=== PATIENT | female | born 1980 | race Caucasian/White ===

== ENCOUNTER 2019-05-18 23:40 | Inpatient (IN) | payer OTHER, SELFPAY ==
[2019-05-18 23:42] VITALS: BP 123/66; PULSE 100; RESP 18; TEMP 36.4; O2SAT 98; BMI 30.9
[2019-05-19] VITALS (7 sets, daily range): BP systolic 93–120; BP diastolic 56–68; PULSE 68–92; RESP 16–20; TEMP 36.7–37.4; O2SAT 96–100; BMI 30.5
[2019-05-19 01:15] LABS: Absolute Lymphocyte Count 2.16 X10^3/uL (0.83-4.51); Absolute Neutrophil Count 3.7 X10^3/uL (2.0-7.7); Basophil# 0.03 X10^3/uL; Basophil% 0.5 % (0-1); Eosinophil# 0.04 X10^3/uL; Eosinophils% 0.6 % (0-5); Hemoglobin 14.7 g/dL (12.0-15.0); Lymphocyte # 2.16 X10^3/ul (4.0); Lymphocyte % 33.8 % (19-41); Mean Corp Hgb Conc 34.2 g/dL (32-36); Mean Corpuscular Hgb 34.3 pg (27.0-32.0); Mean Corpuscular Volume 100.2 fL (81-99); Mean Platelet Vol. 8.6 fl (6.2-12.0); Monocyte# 0.46 X10^3/uL; Monocyte% 7.2 % (0-10); NRBC Flagged by Analyzer 0 % (0-5); Neutrophil # 3.69 X10^3/uL (2.7-7.7); Neutrophil % 57.6 % (47-70); Platelet Count 204 K/mm3 (150-450); RBC Distribution Width CV 13.8 % (11.6-14.6); Red Blood Count 4.29 M/mm3 (4.2-5.4); White Blood Count 6.4 K/mm3 (4.4-11.0)
[2019-05-19 01:31] LABS: AST(SGOT) 26 U/L (15-37); Alanine Aminotransfer ALT/SGPT 20 U/L (13-56); Albumin, Serum 3.9 g/dL (3.2-5.0); Alkaline Phosphatase 104 U/L (45-117); Anion Gap 6 (5-15); BUN 13 mg/dL (7-18); BUN/Creat Ratio 16.6 RATIO (10-20); Bilirubin, Direct 0.15 mg/dL (0.00-0.30); Calcium,Total 8.3 mg/dL (8.5-10.1); Chloride 111 mmol/L (98-107); Creatinine, Serum 0.78 mg/dL (0.55-1.02); EST Glomerular Filtration Rate 88 mL/min (>60); Est Glom Filt Rate - Afr Amer 107 mL/min (>60); Estimated Creatinine Clearance 85.27 ml/min; Globulin 3.5 g/dL (2.2-4.2); Glucose 96 mg/dL (74-106); Lipase 246 U/L (73-393); Potassium 3.9 mmol/L (3.5-5.1); Protein, Total 7.4 g/dL (6.4-8.2); Sodium Level 145 mmol/L (136-145)
--- NOTE | 2019-05-19 01:33 | ED.DCSUM_ITS ---
History of Present Illness Chief Complaint: Substance Abuse Detail of Chief Complaint: EtOH detox Informant: Patient Narrative: Patient presents with family and friends requesting help with alcohol detox. She states she normally drinks a pint of vodka a day. Her last drink was approximately 8 hours prior to my evaluation. She states overall she just feels cruddy and like a horrible person, but denies having nausea or shakes. She has gone through detox in the past and denies having any seizures from alcohol withdrawal. She was most recently at [facility] for detox a month ago. - Past Medical History (1) Alcoholism Status: Acute Past Medical History - Allergies and Home Meds Allergies/Adverse Reactions: Allergies No Known Allergies Allergy (Unverified 05/18/19 23:44) Primary Care Physician: August De La Torre DO [Primary Care Provider] - Prior records reviewed: Yes Smoking Status: Never smoker Alcohol: Heavy Review of Systems General: Denies: Chills, Fever Eyes: Denies: Visual changes - bilaterally ENT: Denies: Bilateral ear pain Cardiovascular: Denies: Chest pain Respiratory: Denies: Dyspnea Gastrointestinal: Denies: Abdominal pain, Nausea, Vomiting, Diarrhea Genitourinary: Denies: Dysuria Musculoskeletal: Denies: Back pain Skin: Denies: Rash Neurological: Denies: Headache Hematologic: Denies: Easy bruising Allergy: Denies: Uticaria Physical Exam Vital Signs/Narrative: Vital Signs Temp Pulse Resp BP Pulse Ox 05/18/19 23:42 97.6 F L 100 18 123/66 H 98 Inital Vital Signs reviewed: Yes General: Well nourished, Well developed Head: Normocephalic ENT: Moist mucous membranes Neck: Supple Cardiovascular: Regular rate, Regular rhythm Respiratory: No distress, CTA bilaterally Abdomen: Soft, Nontender Extremities: Nontender Skin: Normal color, No rash Neurological: Alert, Oriented x3 Psychological: Tearful, - - Anxious Diagnostic/Tx/Re-eval Laboratory Results 05/19/19 05/19/19 05/19/19 01:07 01:07 01:07 WBC 6.4 RBC 4.29 Hgb 14.7 Hct 43.0 MCV 100.2 H MCH 34.3 H MCHC 34.2 RDW Std Deviation 50.0 H RDW Coeff of Giana 13.8 Plt Count 204 MPV 8.6 Immature Gran % (Auto) 0.300 Neut % (Auto) 57.6 Lymph % (Auto) 33.8 Harding % (Auto) 7.2 Eos % (Auto) 0.6 Baso % (Auto) 0.5 Absolute Neuts (auto) 3.7 Absolute Lymphs (auto) 2.16 Nucleated RBC % 0 Sodium 145 Potassium 3.9 Chloride 111 H Carbon Dioxide 28.0 Anion Gap 6 BUN 13 Creatinine 0.78 Estim Creat Clear Calc 85.27 Est GFR (MDRD) Af Amer 107 Est GFR (MDRD) Non-Af 88 BUN/Creatinine Ratio 16.6 Glucose 96 Calcium 8.3 L Total Bilirubin 0.40 Direct Bilirubin 0.15 AST 26 ALT 20 Alkaline Phosphatase 104 Total Protein 7.4 Albumin 3.9 Globulin 3.5 Lipase 246 Ethyl Alcohol 334.0 H* - Medical Decision Making Test results are discussed with patient at bedside. She was initially not sure that she wanted to stay for the medical detox program. After talking over her test results with her, she has agreed that she wants help and wants to stay in the hospital. I will speak with the hospitalist. ED Disposition - Plan for ED Patient: Disposition: Acute Care Hospital [facility] Diagnosis: ETOH abuse Referrals: August De La Torre DO [Primary Care Provider] -
--- NOTE | 2019-05-19 02:14 | HP.PCM_ITS ---
Problem List (1) Alcohol dependence Status: Acute (2) Alcohol withdrawal Status: Acute History of Present Illness Date of Admission: 05/19/19 Chief Complaint: To detox from alcohol The patient is a 39 year old F with a significant history of alcohol dependence who is here for detoxification and with some mild withdrawal symptoms of shakiness and mild nausea. She drinks about 1 pint of vodka a day. The last t theodore she drank vodka was around 5 PM on 05/18/2019. At the Emergency department her ethanol level was at 334. About thirty days ago she went for inpatient alcohol withdrawal program at [place], [place]; and then followed it up with an outpatient alcohol withdrawal program at [place]. Past Medical History Past Medical History (Chronic Problems): Chronic Problems (Last Reviewed 05/19/19 @ 03:49 by Kalpesh Tijerina MD) Premature menopause on hormone replacement therapy (Chronic) Medical History: Medical History (Last Reviewed 05/19/19 @ 03:49 by Kalpesh Tijerina MD) Endometriosis N80.9 H/O: hysterectomy Z98.890, Z90.710 2007 [facility] BSO-endometriosis Allergies No Known Allergies Allergy (Unverified 05/18/19 23:44) Home Medications: Ambulatory Orders Medication Instructions Recorded traZODone [Desyrel] 100 mg PO QHS PRN 05/19/19 Surgical History: Surgical History (Last Reviewed 05/19/19 @ 03:54 by Kalpesh Tijerina MD) History of appendectomy Z98.890, Z90.49 History of cholecystectomy Z98.890, Z90.49 Surgical History: hysterectomy Lives: Alone Smoking Status: Never smoker Alcohol: Heavy - *Family History Maternal History Items: - - Depression Paternal History Items: - - Her father was addicted to alcohol and drugs; and her father had depression. Review of Systems Constitutional: Denies: Chills, Fever, Weight Change HEENT: Denies: Head Aches, Sinus Congestion, Sinus Drainage Cardiovascular: Denies: Chest Pain, Palpitations Respiratory: Denies: Cough, Shortness of breath at rest, Sputum production Gastrointestinal: Reports: Nausea. Denies: Abdominal Pain, Vomiting Genitourinary: Denies: Dysuria Musculoskeletal: Denies: Joint Pain, Joint Tenderness Skin: Denies: Rash, Wounds Neurological: Reports: Tremor. Denies: Focal weakness, Numbness, Tingling Psychiatric: Reports: Anxiety, Depression. Denies: Homicidal Ideations, Suicidal Ideations Hematologic/ Lymphatic: Denies: Easy Bruising, Easy Bleeding VTE Information - Inpt Only VTE Present on Admission: No VTE Mechan Device Prophylaxis: None VTE Pharm Prophylaxis ordered?: No Reason prophylaxis not ordered:: Treatment Not Indicated - Low risk; encouraged to ambulate. Patient Problems: Active and Suspected Problems (Last Reviewed 05/19/19 @ 03:49 by Kalpesh Tijerina MD) Alcoholism (Acute) ETOH abuse (Acute) Alcohol dependence (Acute) Alcohol withdrawal (Acute) - Physical Exam Vitals/I&O's: Vital Signs Temp Pulse Resp BP Pulse Ox 97.6 F L 100 18 123/66 H 98 05/18/19 23:42 05/18/19 23:42 05/18/19 23:42 05/18/19 23:42 05/18/19 23:42 Oxygen Delivery Method Room Air Weight: 81.647 kg Body Mass Index (BMI) 30.9 General: Alert, Oriented x3, Cooperative HEENT: Atraumatic, PERRLA, EOMI, Normocephalic Neck: Supple, No JVD, Negative Carotid Bruits Lungs: Clear to auscultation, Normal air movement Cardiovascular: Regular rate, No murmurs Abdomen: Bowel Sounds Present, Soft, Non Tender Extremities: No edema, Capillary Refill Less than 3 Seconds Skin: No rashes, No breakdown Musculoskeletal: No Tenderness to Palpation of Joints or Extremities Neurological: Cranial nerves II-XII grossly intact Psych/Mental Status: Normal Affect, Appropriate Laboratory Results 05/19/19 01:07: WBC 6.4, RBC 4.29, Hgb 14.7, Hct 43.0, MCV 100.2 H, MCH 34.3 H, MCHC 34.2, RDW Std Deviation 50.0 H, RDW Coeff of Giana 13.8, Plt Count 204, MPV 8.6, Immature Gran % (Auto) 0.300, Neut % (Auto) 57.6, Lymph % (Auto) 33.8, Dorado % (Auto) 7.2, Eos % (Auto) 0.6, Baso % (Auto) 0.5, Absolute Neuts (auto) 3.7, Absolute Lymphs (auto) 2.16, Nucleated RBC % 0 05/19/19 01:07: Sodium 145, Potassium 3.9, Chloride 111 H, Carbon Dioxide 28.0, Anion Gap 6, BUN 13, Creatinine 0.78, Estim Creat Clear Calc 85.27, Est GFR (MDRD) Af Amer 107, Est GFR (MDRD) Non-Af 88, BUN/Creatinine Ratio 16.6, Glucose 96, Calcium 8.3 L, Total Bilirubin 0.40, Direct Bilirubin 0.15, AST 26, ALT 20, Alkaline Phosphatase 104, Total Protein 7.4, Albumin 3.9, Globulin 3.5, Lipase 246 05/19/19 01:07: Ethyl Alcohol 334.0 H* Assessment/Plan All Active Problems (Last Reviewed 05/19/19 @ 03:49 by Kalpesh Tijerina MD) Alcoholism (Acute) ETOH abuse (Acute) Alcohol dependence (Acute) Alcohol withdrawal (Acute) The patient is a 39 year old F with a significant history of alcohol dependence who is here for detoxification and with some mild withdrawal symptoms of shakiness and mild nausea Alcohol Dependence with withdrawal We will start patient on Librium taper and other supportive medications. Multivitamin; thiamine and folic acid ordered. PRN Ativan for seizures. Zofran IV for antiemetics DVT prophylaxis Low risk. Encouraged to ambulate. Code Visit Inpatient E&M: 25696 Init Hosp L3
[2019-05-19 02:29] LABS: Vista UDS pH Range 6
[2019-05-19 02:40] LABS: Amphetamine Urine VISTA NEGATIVE (<1000 ng/mL); Barbiturate Urine VISTA NEGATIVE (< 200 ng/mL); Benzodiazepine Urine VISTA NEGATIVE (< 200 ng/mL); Cocaine Urine VISTA NEGATIVE (< 300 ng/mL); Ecstacy Urine VISTA NEGATIVE (< 500 ng/mL); Methadone Urine VISTA NEGATIVE (< 300 ng/mL); PCP Urine VISTA NEGATIVE (< 25 ng/mL); THC Urine VISTA NEGATIVE (< 50 ng/mL)
[2019-05-19] MEDS: chlordiazePOXIDE 25 MG Capsule 50 MG PO ×4 (03:36→21:20)
[2019-05-19] MEDS: Folic Acid 1 MG Tablet PO (08:12)
[2019-05-19] MEDS: hydrOXYzine PAM 25 MG Capsule 50 MG PO ×2 (08:12→14:26)
[2019-05-19] MEDS: Ondansetron 4 MG/2 ML Vial IV (08:12)
[2019-05-19] MEDS: Multivitamins,Therapeutic Tablet 1 TABLET PO (08:13)
[2019-05-19] MEDS: Thiamine Hydrochloride 100 MG Tablet PO (08:13)
--- NOTE | 2019-05-19 09:15 | CASEMGMT ---
Social Work Note Pt is at [facility] for alcohol withdrawal. RUBY met with pt and introduced self and role at [facility]. Pt is alert and orientated x3. Pt states that she is currently in IOP at [facility] and plans on resuming IOP at discharge. Pt states that she was in [facility] as an inpatient about a month ago and then transitioned to their IOP program. Pt states that she thinks the program is working she just had a slip up. SW informed pt that slip ups are going to happen and it is part of the treatment for addiction. Pt denied wanting additional information/resources at this time and denied wanting this worker to send any clinicals to [facility]. Plan: Resume IOP at [facility] at discharge Tarsha Messina MSW, [employer]PERATOR
--- NOTE | 2019-05-19 10:09 | PCM.PN.HOSP ---
Patient Problems: Active and Suspected Problems (Last Reviewed 05/19/19 @ 03:49 by Kalpesh Tijerina MD) Alcoholism (Acute) ETOH abuse (Acute) Alcohol dependence (Acute) Alcohol withdrawal (Acute) Subjective: Patient seen and examined. She has no complaints. She was admitted for acute alcohol withdrawal. Complains of feeling embarrassed because she just went through intensive inpatient rehab at [facility]. However she states she fell off the wagon yesterday and drank about a pint of vodka. She had no active complaints and review of signs otherwise negative. Labs and vitals reviewed. Vitals/I&O's: Vital Signs Temp Pulse Resp BP Pulse Ox 98.7 F 83 18 104/56 L 96 05/19/19 08:08 05/19/19 08:08 05/19/19 08:08 05/19/19 08:08 05/19/19 08:08 Oxygen Delivery Method Room Air Weight: 177 lb 14.609 oz Body Mass Index (BMI) 30.5 General: Alert, Oriented x3, Cooperative, No apparent distress HEENT: Atraumatic, PERRLA, EOMI, Normocephalic Oral: Moist Mucosa Neck: Supple, No JVD, Negative Carotid Bruits Lungs: Clear to auscultation, Normal air movement, No rhonchi, No wheeze, No rales Cardiovascular: Regular rate, Regular Rhythm, Normal S1, Normal S2, No murmurs Abdomen: Bowel Sounds Present, Soft, Non Tender Extremities: No edema, Capillary Refill Less than 3 Seconds Skin: No rashes, No breakdown Musculoskeletal: No Tenderness to Palpation of Joints or Extremities Lymphatic: No Cervical, Supraclavicular, or Inguinal Adenopathy Neurological: Cranial nerves II-XII grossly intact Psych/Mental Status: Normal Affect, Appropriate, Alert and oriented to time, place, person, mood and affect Laboratory Results 05/19/19 01:07: WBC 6.4, RBC 4.29, Hgb 14.7, Hct 43.0, MCV 100.2 H, MCH 34.3 H, MCHC 34.2, RDW Std Deviation 50.0 H, RDW Coeff of Giana 13.8, Plt Count 204, MPV 8.6, Immature Gran % (Auto) 0.300, Neut % (Auto) 57.6, Lymph % (Auto) 33.8, Hinds % (Auto) 7.2, Eos % (Auto) 0.6, Baso % (Auto) 0.5, Absolute Neuts (auto) 3.7, Absolute Lymphs (auto) 2.16, Nucleated RBC % 0 05/19/19 01:07: Sodium 145, Potassium 3.9, Chloride 111 H, Carbon Dioxide 28.0, Anion Gap 6, BUN 13, Creatinine 0.78, Estim Creat Clear Calc 85.27, Est GFR (MDRD) Af Amer 107, Est GFR (MDRD) Non-Af 88, BUN/Creatinine Ratio 16.6, Glucose 96, Calcium 8.3 L, Total Bilirubin 0.40, Direct Bilirubin 0.15, AST 26, ALT 20, Alkaline Phosphatase 104, Total Protein 7.4, Albumin 3.9, Globulin 3.5, Lipase 246 05/19/19 01:07: Ethyl Alcohol 334.0 H* 05/19/19 02:24: Urine Opiates Screen NEGATIVE, Urine Methadone Screen NEGATIVE, Ur Barbiturates Screen NEGATIVE, Ur Phencyclidine Scrn NEGATIVE, Ur Amphetamines Screen NEGATIVE, U Methamphetamin-MDMA NEGATIVE, U Benzodiazepines Scrn NEGATIVE, Urine Cocaine Screen NEGATIVE, U Cannabinoids Screen NEGATIVE, Ur Drug Screen Comment Current Medications Acetaminophen (Tylenol) 650 mg PO Q6H PRN PRN PRN Reason: Pain Score 1-10/Temp > 100.7 F Chlordiazepoxide (Librium) 50 mg PO Q6H CALDERON; Taper Stop: 05/22/19 05:09 Last Admin: 05/19/19 08:13 Dose: 50 mg Documented by: Dicyclomine HCl (Bentyl) 20 mg PO Q6H PRN PRN PRN Reason: abdominal discomfort Folic Acid (Folic Acid) 1 mg PO DAILYCM CALDERON Stop: 05/21/19 08:01 Last Admin: 05/19/19 08:12 Dose: 1 mg Documented by: Glucagon () 1 mg IM .X1 PRN PRN Reason: Hypoglycemia Hydroxyzine Pamoate (Vistaril Pamoate Capsule) 50 mg PO Q6H PRN PRN PRN Reason: Mild Anxiety (score 1/3) Last Admin: 05/19/19 08:12 Dose: 50 mg Documented by: Dextrose (Dextrose 10%-Water) 250 mls @ 999 mls/hr IV .Q16M PRN; Protocol PRN Reason: HYPOGLYCEMIA Lorazepam (Ativan) 2 mg IV X1 PRN PRN Reason: Seizure Methocarbamol (Methocarbamol) 750 mg PO Q6H PRN PRN PRN Reason: Muscle Aches [facility] Last Admin: 05/19/19 08:13 Dose: 1 tablet Documented by: Ondansetron HCl (Zofran) 4 mg IV Q8H PRN PRN PRN Reason: NAUSEA/VOMITING Last Admin: 05/19/19 08:12 Dose: 4 mg Documented by: Sodium Chloride () 10 - 40 ml IV UD PRN PRN Reason: SALINE FLUSH Thiamine HCl (Vitamin B1) [facility] Stop: 05/21/19 08:01 Last Admin: 05/19/19 08:13 Dose: 100 mg Documented by: STROKE Vital Signs/Narrative: Vital Signs Temp Pulse Resp BP Pulse Ox 05/19/19 08:08 98.7 F 83 18 104/56 L 96 05/19/19 08:00 98 Medical Necessity - Tobacco Use Smoking Status: Never smoker Assessment/Plan All Active Problems (Last Reviewed 05/19/19 @ 03:49 by Kalpesh Tijerina MD) Alcoholism (Acute) ETOH abuse (Acute) Alcohol dependence (Acute) Alcohol withdrawal (Acute) 1. Acute alcohol withdrawal CIWA score today is 13 this morning. On alcohol withdrawal taper with Librium. on Multivite, thiamine and folic acid. Plans on intensive outpatient rehab upon discharge. Monitor CIWA score. 2. Depression: On trazodone DVT prophylaxis: low risk. encourage ambulation Code Visit Inpatient E&M: 04748 Subs Hosp L2
[2019-05-19] MEDS: LORazepam 1 MG Tablet PO ×2 (12:34→17:36)
[2019-05-19] MEDS: Methocarbamol 750 MG Tablet PO (21:24)
[2019-05-20 05:04] VITALS: BP 103/55; PULSE 61; RESP 16; TEMP 36.4; O2SAT 98
[2019-05-20] MEDS: chlordiazePOXIDE 25 MG Capsule 50 MG PO ×2 (05:07→12:47)
--- NOTE | 2019-05-20 10:36 | PN_ITS ---
Patient Problems: Active and Suspected Problems (Last Reviewed 05/19/19 @ 03:49 by Kalpesh Tijerina MD) Alcoholism (Acute) ETOH abuse (Acute) Alcohol dependence (Acute) Alcohol withdrawal (Acute) Subjective: Patient seen and examined. She admits to having some anxiety overnight but that is now better. Review of symptoms otherwise negative. Labs and vitals reviewed. Vitals/I&O's: Vital Signs Temp Pulse Resp BP Pulse Ox 97.6 F L 61 16 103/55 L 98 05/20/19 05:04 05/20/19 05:04 05/20/19 05:04 05/20/19 05:04 05/20/19 05:04 Oxygen Delivery Method Room Air Weight: 177 lb 14.609 oz Body Mass Index (BMI) 30.5 Intake and Output for Last 24 Hours 05/18/19 05/19/19 05/20/19 23:59 23:59 23:59 Intake Total 900 / 1400 1000 / 1000 Balance 900 / 1400 1000 / 1000 General: Alert, Oriented x3, Cooperative, No apparent distress HEENT: Atraumatic, PERRLA, EOMI, Normocephalic Oral: Moist Mucosa Neck: Supple, No JVD, Negative Carotid Bruits Lungs: Clear to auscultation, Normal air movement, No rhonchi, No wheeze, No rales Cardiovascular: Regular rate, Regular Rhythm, Normal S1, Normal S2, No murmurs Abdomen: Bowel Sounds Present, Soft, Non Tender Extremities: No edema, Capillary Refill Less than 3 Seconds Skin: No rashes, No breakdown Musculoskeletal: No Tenderness to Palpation of Joints or Extremities Lymphatic: No Cervical, Supraclavicular, or Inguinal Adenopathy Neurological: Cranial nerves II-XII grossly intact Psych/Mental Status: Normal Affect, Appropriate, Alert and oriented to time, place, person, mood and affect Current Medications Acetaminophen (Tylenol) 650 mg PO Q6H PRN PRN PRN Reason: Pain Score 1-10/Temp > 100.7 F Chlordiazepoxide (Librium) 50 mg PO Q8H CALDERON; Taper Stop: 05/22/19 05:09 Last Admin: 05/20/19 05:07 Dose: 50 mg Documented by: Dicyclomine HCl (Bentyl) 20 mg PO Q6H PRN PRN PRN Reason: abdominal discomfort Folic Acid (Folic Acid) [facility] Stop: 05/21/19 08:01 Last Admin: 05/19/19 08:12 Dose: 1 mg Documented by: Glucagon () 1 mg IM .X1 PRN PRN Reason: Hypoglycemia Hydroxyzine Pamoate (Vistaril Pamoate Capsule) 50 mg PO Q6H PRN PRN PRN Reason: Mild Anxiety (score 1/3) Last Admin: 05/19/19 14:26 Dose: 50 mg Documented by: Dextrose (Dextrose 10%-Water) 250 mls @ 999 mls/hr IV .Q16M PRN; Protocol PRN Reason: HYPOGLYCEMIA Lorazepam (Ativan) 2 mg IV X1 PRN PRN Reason: Seizure Methocarbamol (Methocarbamol) 750 mg PO Q6H PRN PRN PRN Reason: Muscle Aches Last Admin: 05/19/19 21:24 Dose: 750 mg Documented by: Multivitamins (Multivitamin) [facility] Last Admin: 05/19/19 08:13 Dose: 1 tablet Documented by: Ondansetron HCl (Zofran) 4 mg IV Q8H PRN PRN PRN Reason: NAUSEA/VOMITING Last Admin: 05/19/19 08:12 Dose: 4 mg Documented by: Sodium Chloride () 10 - 40 ml IV UD PRN PRN Reason: SALINE FLUSH Thiamine HCl (Vitamin B1) 100 [facility] Stop: 05/21/19 08:01 Last Admin: 05/19/19 08:13 Dose: 100 mg Documented by: Medical Necessity - Tobacco Use Smoking Status: Never smoker Assessment/Plan All Active Problems (Last Reviewed 05/19/19 @ 03:49 by Kalpesh Tijerina MD) Alcoholism (Acute) ETOH abuse (Acute) Alcohol dependence (Acute) Alcohol withdrawal (Acute) 1. Acute alcohol withdrawal * CIWA score today is 4 this morning. * On alcohol withdrawal taper with Librium. * on Multivite, thiamine and folic acid. * Plans on intensive outpatient rehab upon discharge. * Monitor CIWA score. * 2. Depression: On trazodone DVT prophylaxis: low risk. encourage ambulation Disposition: patient wants to be discharged home tomorrow. Code Visit Inpatient E&M: 19604 Subs Hosp L2
[2019-05-20] MEDS: Thiamine Hydrochloride 100 MG Tablet PO (10:41)
[2019-05-20] MEDS: Folic Acid 1 MG Tablet PO (10:41)
[2019-05-20] MEDS: Multivitamins,Therapeutic Tablet 1 TABLET PO (10:41)
[2019-05-20 10:55] VITALS: O2SAT 98
[2019-05-20 11:00] VITALS: BP 124/52; PULSE 89; RESP 18; TEMP 36.7; O2SAT 99
--- NOTE | 2019-05-20 11:06 | DCINST_ITS ---
- Discharge Diagnoses Current Active Problems: Current Active and Chronic Problems (Last Reviewed 05/19/19 @ 03:49 by Kalpesh Tijerina MD) Alcoholism (Acute) ETOH abuse (Acute) Alcohol dependence (Acute) Alcohol withdrawal (Acute) You will use the following diet at home:: Cardiac Your food should be the consistency of: Regular Your liquids should be the consistency of: Regular/Thin Discharge Activity: Return to Normal Activity Weight Bearing Status: Weight bearing as tolerated Call your doctor if you observe: Shortness of breath, Fainting spells Instructions: Alcoholism: How to be Part of the Solution, Understanding Alcoholism, Signs of Alcohol Addiction (Alcoholism), Alcoholism: Getting Help Allergies/Adverse Reactions: Allergies No Known Allergies Allergy (Unverified 05/18/19 23:44) Medications to take at Discharge traZODone [Desyrel] 100 mg PO QHS PRN 05/19/19 Primary Care Physician: August De La Torre DO [Primary Care Provider] - Please follow up with your Primary Care Physician in: one week Test Results: Test results from this visit will be discussed in further detail at your follow- up appointment, if applicable. Proposed Discharge Date: 05/20/19
--- NOTE | 2019-05-20 11:07 | DS.PCM_ITS ---
Discharge Date and Diagnosis Date of Admission: 05/19/19 Date of Discharge: 05/20/19 - Primary Discharge Diagnosis Active and Suspected Problems (Last Reviewed 05/19/19 @ 03:49 by Kalpesh Tijerina MD) Alcoholism (Acute) ETOH abuse (Acute) Alcohol dependence (Acute) Alcohol withdrawal (Acute) - Secondary Discharge Diagnosis Chronic Problems (Last Reviewed 05/19/19 @ 03:49 by Kalpesh Tijerina MD) Premature menopause on hormone replacement therapy (Chronic) Hospital Course and Treatment Imaging Results: Patient is a 39-year-old female with a past medical history of alcohol dependence. She was admitted through the ED on 05/19/2019 with a complaint of nausea and tremors. She last drank in the evening of the day before presentation and drank about 1 pint of vodka a day. Patient states had recently gone through detox and had stayed clean until a couple of weeks prior to admission when he started drinking again. Alcohol level was 334. She was admitted and managed for acute alcohol withdrawal. She was started on alcohol withdrawal protocol with librium. She was also started on Multivite, thiamine and folic acid. Patient tolerated the Librium protocol. However on 05/20/2019, patient insisted on being discharged she said she did not really think she was in withdrawal and wanted to go to an alcohol most meeting that evening CIWA score was 4 time of discharge. Plan was to follow-up at [facility] in [facility] on 05/22/2019. Despite counseling that it would be beneficial to finish the 3-day detox protocol, based on patient's insistence, she was discharged on 05/20/2019. Patient was seen and examined prior to discharge. She had no complaints and felt well. Review of systems otherwise negative. Labs and vitals reviewed. Home medication reviewed and reconciled. CIWA score was 4. o/e: Vital Signs Height 5 ft 4 in Weight: 177 lb 14.609 oz Weight in Pounds 177.9 lbs Pulse Ox 99 Temperature 98.0 F Pulse Rate 89 Respiratory Rate 18 Blood Pressure 124/52 Blood Pressure Position Semi-Fowlers General: Alert, Oriented x3, Cooperative, No apparent distress HEENT: Atraumatic, PERRLA, EOMI, Normocephalic Oral: Moist Mucosa Neck: Supple, No JVD, Negative Carotid Bruits Lungs: Clear to auscultation, Normal air movement, No rhonchi, No wheeze, No rales Cardiovascular: Regular rate, Regular Rhythm, Normal S1, Normal S2, No murmurs Abdomen: Bowel Sounds Present, Soft, Non Tender Extremities: No edema, Capillary Refill Less than 3 Seconds Skin: No rashes, No breakdown Musculoskeletal: No Tenderness to Palpation of Joints or Extremities Lymphatic: No Cervical, Supraclavicular, or Inguinal Adenopathy Neurological: Cranial nerves II-XII grossly intact Psych/Mental Status: Normal Affect, Appropriate, Alert and oriented to time, place, person, mood and affect Plan as above. Summary of Care Provided: The patient is a 39 year old F [] - Physical Exam Vitals/I&O's: Vital Signs Temp Pulse Resp BP Pulse Ox 97.6 F L 61 16 103/55 L 98 05/20/19 05:04 05/20/19 05:04 05/20/19 05:04 05/20/19 05:04 05/20/19 05:04 Oxygen Delivery Method Room Air Weight: 177 lb 14.609 oz Body Mass Index (BMI) 30.5 Intake and Output for Last 24 Hours 05/18/19 05/19/19 05/20/19 23:59 23:59 23:59 Intake Total 900 / 1400 1000 / 1000 Balance 900 / 1400 1000 / 1000 Current Medications Acetaminophen (Tylenol) 650 mg PO Q6H PRN PRN PRN Reason: Pain Score 1-10/Temp > 100.7 F Chlordiazepoxide (Librium) 50 mg PO Q8H CALDERON; Taper Stop: 05/22/19 05:09 Last Admin: 05/20/19 05:07 Dose: 50 mg Documented by: Dicyclomine HCl (Bentyl) 20 mg PO Q6H PRN PRN PRN Reason: abdominal discomfort Folic Acid (Folic Acid) 1 mg PO DAILYCM CALDERON Stop: 05/21/19 08:01 Last Admin: 05/20/19 10:41 Dose: 1 mg Documented by: Glucagon () 1 mg IM .X1 PRN PRN Reason: Hypoglycemia Hydroxyzine Pamoate (Vistaril Pamoate Capsule) 50 mg PO Q6H PRN PRN PRN Reason: Mild Anxiety (score 1/3) Last Admin: 12/20/19 14:26 Dose: 50 mg Documented by: Dextrose (Dextrose 10%-Water) 250 mls @ 999 mls/hr IV .Q16M PRN; Protocol PRN Reason: HYPOGLYCEMIA Lorazepam (Ativan) 2 mg IV X1 PRN PRN Reason: Seizure Methocarbamol (Methocarbamol) 750 mg PO Q6H PRN PRN PRN Reason: Muscle Aches Last Admin: 05/19/19 21:24 Dose: 750 mg Documented by: [facility] Last Admin: 05/20/19 10:41 Dose: 1 tablet Documented by: Ondansetron HCl (Zofran) 4 mg IV Q8H PRN PRN PRN Reason: NAUSEA/VOMITING Last Admin: 05/19/19 08:12 Dose: 4 mg Documented by: Sodium Chloride () 10 - 40 ml IV UD PRN PRN Reason: SALINE FLUSH Thiamine HCl ([facility]itamin B1) [facility] Stop: 05/21/19 08:01 Last Admin: 05/20/19 10:41 Dose: 100 mg Documented by: Discharge Diet: Low fat/ Low Cholesterol Discharge Activity: Return to Normal Activity Weight Bearing Status: Weight bearing as tolerated Call your doctor if you observe: Shortness of breath, Fainting spells Home Medications: Medications to take at Discharge traZODone [Desyrel] 100 mg PO QHS PRN 05/19/19 Primary Care Physician: August De La Torre DO [Primary Care Provider] - Please follow up with your Primary Care Physician in: one week Patient Instructions: Signs of Alcohol Addiction (Alcoholism), Understanding Alcoholism, Alcoholism: How to be Part of the Solution, Alcoholism: Getting Help Disposition: Home Minutes spent on discharge:: 40 Patient Condition:: Stable Medical Necessity - Tobacco Use Smoking Status: Never smoker Meaningful Use Info Meaningful Use Diagnoses (Choose all that apply): None applicable Code Visit Inpatient E&M: 06730 Disch Hosp
== END 2019-05-20 13:00 | disposition home or self-care (01) | DRG 897 ==
LOC: ED 05-19 02:06 → MS3 05-19 02:35
PROVIDERS: Admitting Provider Hospitalist; Emergency Provider Emergency Medicine; Family Provider Preventive Medicine Occupational Medicine; PCP Preventive Medicine Occupational Medicine; Visit Provider Student in an Organized Health Care Education/Training Program
DX: F10.239 Alcohol dependence with withdrawal, unspecified (principal); F32.9 Major depressive disorder, single episode, unspecified; E28.319 Asymptomatic premature menopause; Z79.890 Hormone replacement therapy; Y90.8 Blood alcohol level of 240 mg/100 ml or more
CPT/HCPCS: 36415; 80048; 80076; 80307; 80320; 83690; 85025; 99284; A4216; G0480; J2405